=== PATIENT | male | born 1965 | race American Indian/Alaskan Native ===

== ENCOUNTER 2016-06-29 10:37 | Outpatient (CLI) | payer MEDICARE ==
--- NOTE | 2016-06-30 10:07 | PET Report ---
PET/CT:06/29/16 CLINICAL: Hodgkin's lymphoma restaging. RADIOPHARMACEUTICAL: 13.66mCi F18-FDG. COMPARISON: 09/03/14 PET/CT TECHNIQUE- Following intravenous injection of F-18 FDG and an approximately 60 minute uptake period, CT and PET images from the mid skull to the upper thighs were acquired with the patient in the fasted state. No contrast was administered. The CT protocol used for this PET CT study is designed for attenuation correction and anatomic localization of PET abnormalities. This grade recorder CT is not desired to produce and cannot replace, xeibn-xo-ekl-art diagnostic CT scans with specific imaging protocols for different body parts and indications. Plasma glucose at the time of this test: 88g/dl. The standardized uptake values (SUV) are normalized to patient body weight and indicate the highest activity concentration (SUV max) in a given disease site. FINDINGS: Brain--Physiologic FDG uptake in the visualized regions of the brain. Neck--Physiologic FDG uptake . Stable small calcified left supraclavicular lymph nodes. Chest--Physiologic FDG uptake in mediastinal blood pool and myocardium. Lungs--No abnormal uptake. No pulmonary nodule or mass. Stable post radiation changes. Pleura/pericardium--No abnormal uptake. Thoracic nodes--No abnormal uptake. Stable calcified mediastinal lymph nodes. Hepatobiliary--No abnormal uptake. Liver background SUV mean, as a reference for comparing FDG studies, is 3.7 compared to 2.9 on the last exam. No liver mass. Spleen--No abnormal uptake. The spleen is small. Pancreas--No abnormal uptake. Adrenal Glands--No abnormal uptake. Kidneys/Ureters/Bladder--No abnormal uptake. Abdominopelvic Nodes--No abnormal uptake. Bowel/Peritoneum/Mesentery--No abnormal uptake. Pelvic organs--No abnormal uptake. Bones/Soft Tissues--No abnormal uptake. Stable sclerotic lesions of the thoracic and lumbar spine with stable compression fractures of T9 and L1. IMPRESSION- Stable disease.
== END 2016-06-29 10:38 | disposition home or self-care (01) ==
LOC: PET 10:37
PROVIDERS: ATTEND Internal Medicine Hematology
DX: C11.8 Malignant neoplasm of overlapping sites of nasopharynx (principal); S32.019A Unspecified fracture of first lumbar vertebra, initial encounter for closed fracture; X58.XXXA Exposure to other specified factors, initial encounter; Y93.89 Activity, other specified; Y92.89 Other specified places as the place of occurrence of the external cause; Y99.8 Other external cause status
CPT/HCPCS: 78815; 82962; A9552

== ENCOUNTER 2017-01-04 09:58 | Outpatient (CLI) | payer MEDICARE ==
--- NOTE | 2017-01-05 13:41 | PET Report ---
PET/CT:01/04/17 09:58:00 CLINICAL: Hodgkin's lymphoma restaging. RADIOPHARMACEUTICAL: 14.957mCi F18-FDG. COMPARISON: 06/29/16 PET/CT TECHNIQUE- Following intravenous injection of F-18 FDG and an approximately 60 minute uptake period, CT and PET images from the mid skull to the upper thighs were acquired with the patient in the fasted state. No contrast was administered. The CT protocol used for this PET CT study is designed for attenuation correction and anatomic localization of PET abnormalities. This case liner CT is not desired to produce and cannot replace, pwwqs-iz-qpr-art diagnostic CT scans with specific imaging protocols for different body parts and indications. Plasma glucose at the time of this test: 97g/dl. The standardized uptake values (SUV) are normalized to patient body weight and indicate the highest activity concentration (SUV max) in a given disease site. FINDINGS: Brain--Physiologic FDG uptake in the visualized regions of the brain. Neck--Physiologic FDG uptake . Chest--Physiologic FDG uptake in mediastinal blood pool and myocardium. Lungs--No abnormal uptake. No pulmonary nodule or mass. Pleura/pericardium--No abnormal uptake. Thoracic nodes--No abnormal uptake. A few calcified left hilar and mediastinal lymph nodes. Hepatobiliary--No abnormal uptake. Liver background SUV mean, as a reference for comparing FDG studies, is 3.7 compared to 3.7 on the last exam. No liver mass. Spleen--No abnormal uptake. The spleen is small. Pancreas--No abnormal uptake. Adrenal Glands--No abnormal uptake. Kidneys/Ureters/Bladder--No abnormal uptake. Abdominopelvic Nodes--No abnormal uptake. An FDG avid 1.0 x 1.0 cm right internal iliac lymph node with SUV 5.2. An FDG avid right inguinal lymph node measures 1.7 x 1.0 cm with SUV 6.2. An FDG avid 1.2 x 0.9 cm left inguinal lymph node with SUV 8.2. Bowel/Peritoneum/Mesentery--No abnormal uptake. Pelvic organs--No abnormal uptake. Bones/Soft Tissues--No abnormal uptake. Stable thoracic and lumbar spine sclerotic lesions and compression fractures of T9 and L1. IMPRESSION- 1. New disease involving right internal iliac and bilateral inguinal lymph nodes. 2. No other new findings.
== END 2017-01-04 09:59 | disposition home or self-care (01) ==
LOC: PET 09:58
PROVIDERS: ATTEND Internal Medicine Hematology
DX: C81.18 Nodular sclerosis Hodgkin lymphoma, lymph nodes of multiple sites (principal); M48.54XA Collapsed vertebra, not elsewhere classified, thoracic region, initial encounter for fracture; M48.56XA Collapsed vertebra, not elsewhere classified, lumbar region, initial encounter for fracture; M48.8X4 Other specified spondylopathies, thoracic region; M48.8X6 Other specified spondylopathies, lumbar region
CPT/HCPCS: 78815; 82962; A9552

== ENCOUNTER 2017-07-26 09:43 | Outpatient (CLI) | payer MEDICARE ==
--- NOTE | 2017-07-27 11:00 | PET Report ---
PET/CT:07/26/17 09:43:00 CLINICAL: Hodgkin's lymphoma restaging. RADIOPHARMACEUTICAL: 15.11mCi F18-FDG. COMPARISON: 01/04/17 PET/CT TECHNIQUE- Following intravenous injection of F-18 FDG and an approximately 60 minute uptake period, CT and PET images from the mid skull to the upper thighs were acquired with the patient in the fasted state. No contrast was administered. The CT protocol used for this PET CT study is designed for attenuation correction and anatomic localization of PET abnormalities. This installer apprentice CT is not desired to produce and cannot replace, qmyzr-hl-vgb-art diagnostic CT scans with specific imaging protocols for different body parts and indications. Plasma glucose at the time of this test: 101g/dl. The standardized uptake values (SUV) are normalized to patient body weight and indicate the highest activity concentration (SUV max) in a given disease site. FINDINGS: Brain--Physiologic FDG uptake in the visualized regions of the brain. Neck--Physiologic FDG uptake . Chest--Physiologic FDG uptake in mediastinal blood pool and myocardium. Lungs--No abnormal uptake. No pulmonary nodule or mass. Stable left upper lobe and left lower lobe scar. Pleura/pericardium--No abnormal uptake. Thoracic nodes--No abnormal uptake. Stable calcified anterior mediastinal lymph nodes and left hilar lymph nodes. Hepatobiliary--No abnormal uptake. Liver background SUV mean, as a reference for comparing FDG studies, is 2.75 compared to 3.7 on the last exam. No liver mass. Spleen--Small with no abnormal uptake. Pancreas--No abnormal uptake. Adrenal Glands--No abnormal uptake. Kidneys/Ureters/Bladder--No abnormal uptake. Abdominopelvic Nodes--Previously identified FDG avid pelvic lymphadenopathy has resolved. However, a new FDG avid left external iliac lymph node measures 1.7 x 1.4 cm with SUV 6.3. The previously described left inguinal lymph node now measures 1.2 x 1.1 cm with SUV 2.3 compared to 8.2 on the last exam. Bowel/Peritoneum/Mesentery--No abnormal uptake. Pelvic organs--No abnormal uptake. Bones/Soft Tissues--No abnormal uptake. IMPRESSION- Mixed response to treatment with resolution of previously identified FDG avid pelvic lymph nodes but a new enlarged FDG avid left external iliac lymph node. No other new disease.
== END 2017-07-26 09:44 | disposition home or self-care (01) ==
LOC: PET 09:43
PROVIDERS: ATTEND Internal Medicine Hematology
DX: C81.18 Nodular sclerosis Hodgkin lymphoma, lymph nodes of multiple sites (principal); J98.4 Other disorders of lung; R79.89 Other specified abnormal findings of blood chemistry
CPT/HCPCS: 78815; 82962; A9552

== ENCOUNTER 2017-11-04 12:15 | Emergency (ER) | payer MEDICARE ==
[2017-11-04 12:24] VITALS: BP 154/64
[2017-11-04 13:12] LABS: Hematocrit 45.4 % (35.5-45.6); Mean Corpuscular HGB Conc 33 % (32-34); Mean Corpuscular Hemoglobin 30 pg (28-32); Mean Corpuscular Volume 92 fl (84-94); Platelet Count 266 K/mm3 (140-440); Red Blood Count 4.95 M/mm3 (3.65-5.03); Red Cell Distribution Width 15.6 % (13.2-15.2)
[2017-11-04 13:13] LABS: Basophils # (Auto) 0.1 K/mm3 (0.0-0.1); Basophils % (Auto) 0.9 % (0.0-1.8); Eosinophils # (Auto) 0.3 K/mm3 (0.0-0.4); Eosinophils % (Auto) 3.7 % (0.0-4.3); Lymphocytes # (Auto) 2.4 K/mm3 (1.2-5.4); Lymphocytes % (Auto) 31.3 % (13.4-35.0); Mean Platelet Volume 7.2 fl (6-12); Monocytes # (Auto) 0.7 K/mm3 (0.0-0.8); Monocytes % (Auto) 9.7 % (0.0-7.3)
[2017-11-04 13:31] LABS: Alanine Aminotransferase 16 units/L (7-56); Albumin 4.5 g/dL (3.9-5); BUN/Creatinine Ratio 13; Blood Urea Nitrogen 12 mg/dL (9-20); Calcium 10.2 mg/dL (8.4-10.2); Hemolysis Index 24
--- NOTE | 2017-11-04 18:05 | Emergency Department Report ---
ED General Adult HPI - General Chief complaint: Pain General Stated complaint: SHOULDER/HIP/BACK PAIN Time Seen by Provider: 11/04/17 17:38 Source: patient Mode of arrival: Ambulatory Limitations: No Limitations - History of Present Illness Initial comments: Mr. Lou is a 52-year-old male with history of Hodgkin's lymphoma. He was diagnosed in 2008. His followed by oncologist Dr. Domonique Haddad. He receives chemotherapy treatments every 2 weeks. Unfortunately he's had a lapse in his medical insurance coverage. He is covered by Medicaid and Medicare. He contacted Esther case packer and sealer in oncology clinic who referred him to the office for Medicare or Medicaid. He was unable to fill prescriptions of oxycodone and Percocet. He has taken these medications for several years. He has diffuse pain in his joints and back. Pain is not new. Pain is typical and caused by his malignancy. - Related Data Previous Rx's Medication Instructions Recorded Last Taken Type Oxycodone HCl 10 mg PO BID PRN #30 tablet 11/04/17 Unknown Rx Oxycodone HCl/Acetaminophen 1 each PO Q6HR PRN #30 tablet 11/04/17 Unknown Rx [Percocet 10/325 mg] Allergies Allergy/AdvReac Type Severity Reaction Status Date / Time ondansetron HCl AdvReac DECREASE Unverified 11/04/17 12:24 [From Zofran (as HEART RATE hydrochloride)] ED Review of Systems ROS: Stated complaint: SHOULDER/HIP/BACK PAIN Other details as noted in HPI Comment: All other systems reviewed and negative Constitutional: denies: fever, malaise Respiratory: denies: orthopnea Cardiovascular: denies: chest pain ED Past Medical Hx - Past Medical History Previous Medical History?: Yes Hx of Cancer: Yes (Lymphoma) Additional medical history: Chemo. radiation - Surgical History Past Surgical History?: No - Social History Smoking Status: Current Every Day Smoker Substance Use Type: None - Medications Home Medications: Home Medications Medication Instructions Recorded Confirmed Last Taken Type Oxycodone HCl 10 mg PO BID PRN #30 tablet 11/04/17 Unknown Rx Oxycodone HCl/Acetaminophen 1 each PO Q6HR PRN #30 tablet 11/04/17 Unknown Rx [Percocet 10/325 mg] ED Physical Exam - General Limitations: No Limitations General appearance: alert, in no apparent distress - Head Head exam: Present: atraumatic, normocephalic - Eye Eye exam: Present: normal appearance - ENT ENT exam: Present: mucous membranes moist - Neck Neck exam: Present: normal inspection - Respiratory Respiratory exam: Present: normal lung sounds bilaterally. Absent: respiratory distress, wheezes, rales, rhonchi - Cardiovascular Cardiovascular Exam: Present: regular rate, normal rhythm, normal heart sounds. Absent: systolic murmur, diastolic murmur, rubs, gallop - GI/Abdominal GI/Abdominal exam: Present: soft, normal bowel sounds. Absent: distended, tenderness, guarding, rebound - Rectal Rectal exam: Present: deferred - Extremities Exam Extremities exam: Present: normal inspection - Back Exam Back exam: Present: normal inspection - Neurological Exam Neurological exam: Present: alert, oriented X3 - Psychiatric Psychiatric exam: Present: normal affect, normal mood - Skin Skin exam: Present: warm, dry, intact, normal color. Absent: rash ED Course Vital Signs 11/04/17 12:18 Temperature 98.1 F Pulse Rate 91 H Respiratory 16 Rate Blood Pressure 154/64 O2 Sat by Pulse 100 Oximetry ED Medical Decision Making - Lab Data Result diagrams: 11/04/17 12:44 11/04/17 12:44 Laboratory Results - last 24 hr 11/04/17 11/04/17 12:44 12:44 WBC 7.6 RBC 4.95 Hgb 15.0 Hct 45.4 MCV 92 MCH 30 MCHC 33 RDW 15.6 H Plt Count 266 Lymph % (Auto) 31.3 [place] % (Auto) 9.7 H Eos % (Auto) 3.7 Baso % (Auto) 0.9 Lymph # 2.4 [place] # 0.7 Eos # 0.3 Baso # 0.1 Seg Neutrophils % 54.4 Seg Neutrophils # 4.1 Sodium 137 Potassium 4.9 Chloride 97.5 L Carbon Dioxide 27 Anion Gap 17 BUN 12 Creatinine 0.9 Estimated GFR > 60 BUN/Creatinine Ratio 13 Glucose 96 Calcium 10.2 Total Bilirubin 0.30 AST 22 ALT 16 Alkaline Phosphatase 66 Total Creatine Kinase 288 H Troponin T < 0.010 NT-Pro-B Natriuret Pep 54.81 Total Protein 7.6 Albumin 4.5 Albumin/Globulin Ratio 1.5 - Medical Decision Making Mr. Lou unfortunately was unable to obtain his prescriptions of Percocet and oxycodone. I was able to assess his prescription medication history from the [place] drug prescription drug monitoring program. I did see that he has received all his narcotic medications from Dr. Domonique Haddad. I have prescribed 30 tablets of Percocet 10 mg tablets. Also prescribed 30 tablets of oxycodone 10 mg tablets. Critical care attestation.: If time is entered above; I have spent that time in minutes in the direct care of this critically ill patient, excluding procedure time. ED Disposition Clinical Impression: Whole body pain, Hodgkins lymphoma Disposition: TO HOME OR SELFCARE Is pt being admited?: No Does the pt Need Aspirin: No Condition: Stable Instructions: Hodgkin Disease (ED) Additional Instructions: Please contact Dr. Haddad's office tomorrow for assistance. Prescriptions: Oxycodone HCl 10 mg PO BID PRN #30 tablet PRN Reason: Pain Oxycodone HCl/Acetaminophen [Percocet 10/325 mg] 1 each PO Q6HR PRN #30 tablet PRN Reason: Pain Referrals: DOMONIQUE HADDAD MD [Primary Care Provider] - 3-5 Days Time of Disposition: 18:08
== END 2017-11-04 18:42 | disposition home or self-care (01) ==
LOC: ED 12:15
DX: C81.90 Hodgkin lymphoma, unspecified, unspecified site (principal); F17.200 Nicotine dependence, unspecified, uncomplicated; Z79.899 Other long term (current) drug therapy; Z88.8 Allergy status to other drugs, medicaments and biological substances
CPT/HCPCS: 36415; 80053; 82550; 83880; 84484; 85025; 99283

== ENCOUNTER 2018-07-04 12:11 | Outpatient (CLI) | payer MEDICARE ==
--- NOTE | 2018-07-05 16:25 | PET Report ---
PET/CT:07/04/18 12:11:00 CLINICAL: Hodgkin's lymphoma restaging RADIOPHARMACEUTICAL: 12.475mCi F18-FDG. COMPARISON: 07/26/17 PET/CT TECHNIQUE- Following intravenous injection of F-18 FDG and an approximately 60 minute uptake period, CT and PET images from the mid skull to the upper thighs were acquired with the patient in the fasted state. No contrast was administered. The CT protocol used for this PET CT study is designed for attenuation correction and anatomic localization of PET abnormalities. This runstitching machine operator CT is not desired to produce and cannot replace, hdfdl-ly-qph-art diagnostic CT scans with specific imaging protocols for different body parts and indications. Plasma glucose at the time of this test: 91g/dl. The standardized uptake values (SUV) are normalized to patient body weight and indicate the highest activity concentration (SUV max) in a given disease site. FINDINGS: Brain--Physiologic FDG uptake in the visualized regions of the brain. Neck--Physiologic FDG uptake in mucosal structures. No mass or lymphadenopathy. Bilateral palatine tonsillar FDG uptake within SUV 5.8 on the right and 4.9 on the left. Right retropharyngeal focal FDG uptake within SUV 3.9 at the level of the cricoid cartilage. Chest--Physiologic FDG uptake in mediastinal blood pool and myocardium. Lungs--No abnormal uptake. No pulmonary nodule or mass. Stable left upper lobe and left lower lobe scar. Pleura/pericardium--No abnormal uptake. Thoracic nodes--No abnormal uptake. Hepatobiliary--No abnormal uptake. Liver background SUV mean, as a reference for comparing FDG studies, is 2.7 compared to 2.5 on the last exam. No liver mass. Spleen--No abnormal uptake. The spleen is small. Pancreas--No abnormal uptake. Adrenal Glands--No abnormal uptake. Kidneys/Ureters/Bladder--No abnormal uptake. Abdominopelvic Nodes--Bilateral FDG avid inguinal lymphadenopathy. The largest lymph node on the right measures 1.9 x 1.8 cm with SUV 5.1. A 1.2 x 1.2 cm left inguinal lymph node with SUV 2.7 compared to 1.2 x 1.1 cm and SUV 2.3. The previously described left external iliac lymph node measures 2.0 x 1.3 cm with SUV 6.9 compared to 1.7 x 1.4 cm in SUV 6.3 on the last exam. No retroperitoneal lymphadenopathy. Bowel/Peritoneum/Mesentery--No abnormal uptake. Pelvic organs--No abnormal uptake. Bones/Soft Tissues--No abnormal uptake and no suspicious bone lesions. IMPRESSION- Progression of disease with increased bilateral inguinal lymphadenopathy and increased size and FDG uptake in a left external iliac lymph node. FDG uptake in the neck is probably benign.
== END 2018-07-04 12:12 | disposition home or self-care (01) ==
LOC: PET 12:11
PROVIDERS: ATTEND Internal Medicine Hematology
DX: R59.1 Generalized enlarged lymph nodes (principal); C81.18 Nodular sclerosis Hodgkin lymphoma, lymph nodes of multiple sites; F17.210 Nicotine dependence, cigarettes, uncomplicated; Z88.8 Allergy status to other drugs, medicaments and biological substances
CPT/HCPCS: 78815; 82962; A9552

== ENCOUNTER 2019-01-16 08:38 | Outpatient (CLI) | payer MEDICARE ==
--- NOTE | 2019-01-16 12:41 | PET Report ---
POSITRON EMISSION TOMOGRAPHY WITH CT FOR ATTENUATION CORRECTION AND ANATOMIC CORRELATION ONLY Indication: Restaging Hodgkin's lymphoma Comparison: 07/04/2018 Technique: Study was performed from skull base to mid thigh using 14.07 millicuries of F18-FDG inject ed at 0912 hours with scan initiation time of 1033 hours. Just prior to injection, serum glucose [facility] was measured at 108 mg/dl. Low-resolution CT without contrast was performed. All CT scans at this ocation are performed using CT dose reduction for ALARA by means of automated exposure control. CT findings: Small nodule in the right lower lobe is stable. Scarring is again noted in the upper lob es bilaterally without change. Small nodes are again seen in the junction of the neck and chest exten ding into the superior mediastinum with partial calcification without change. Calcified anterior medi astinal and left hilar nodes are seen again. No retroperitoneal lymphadenopathy is seen. Spleen are n ot enlarged. Mild colonic diverticulosis is seen without evidence of diverticulitis. Enlarged right i nguinal nodes are again noted. Largest node in this area measures 2.7 cm and length with a short axis length of 2.2 cm. Prior study this node measured 2.1 cm in length with a short axis diameter of 1.8 cm. In the left inguinal area only small nodes are seen without change with the largest having a shor t axis diameter of 1 cm.. Nodes in the left external iliac area appear mildly decreased in prominence . There appears to be mild new adenopathy in the right lateral pelvis posterior to the external iliac vasculature with increased density in this area now measuring 2.3 cm in length and 1.4 cm in thickne ss. This area may include some vasculature however. PET findings: No significant increased metabolic foci are seen in the neck, chest, or abdomen. The en larged nodes in the right inguinal area continue to show increased metabolic activity. This measures up to a maximum of 10.0 and the largest node. This compares to 7.1 maximum SUV previously. In the lef t inguinal area only faint activity is seen in the largest node with maximal SUV of only 1.5. The lef t external iliac adenopathy today shows only mild activity with maximal SUV of 2.8 compared to 7.9 pr eviously. The area of increased density in the lateral right pelvis shows maximal SUV of 4.6. IMPRESSION: The right inguinal adenopathy is more prominent now with more prominent metabolic activit y. Improvement is seen in the left external iliac area however. A new area of mild adenopathy is seen in the right lateral pelvis as above increased metabolic activity. Signer Name: Toño Garibay MD Signed: 01/16/2019 12:37 PM Workstation Name: [id number]
== END 2019-01-16 08:39 | disposition home or self-care (01) ==
LOC: PET 08:38
PROVIDERS: ATTEND Internal Medicine Hematology
DX: C81.18 Nodular sclerosis Hodgkin lymphoma, lymph nodes of multiple sites (principal); K57.30 Diverticulosis of large intestine without perforation or abscess without bleeding; R73.09 Other abnormal glucose
CPT/HCPCS: 78815; 82962; A9552

== ENCOUNTER 2019-03-27 08:27 | Outpatient (CLI) | payer MEDICARE ==
--- NOTE | 2019-03-27 14:20 | PET Report ---
PET/CT HISTORY: C81.18. Restaging of nodular Hodgkin's lymphoma TECHNIQUE: The patient's fasting blood glucose was 104. The patient weighed 157 lbs. The patient w as injected with 11.5 mCi of FDG in the left hand at 0924 hours and imaging was started at 1009 hours . The patient was imaged from the skull base to the thighs. All CT scans at this location are perfor med using CT dose reduction for ALARA by means of automated exposure control. COMPARISON: 01/16/2019 FINDINGS: IMAGED BRAIN: Physiologic FDG uptake. NECK: Physiologic FDG uptake. MEDIASTINUM: Physiologic FDG uptake. Calcified lymph nodes in the paratracheal, AP window and left hi lar chain are stable. No new or suspicious adenopathy. LUNGS: Physiologic FDG uptake. Tiny subpleural nodule in the right lower lobe is stable. No suspiciou s lung nodule or mass has developed. Stable radiation changes to the mediastinum. HEPATOBILIARY: Physiologic FDG uptake. Mean liver SUV measures 5.6. PANCREAS: Physiologic FDG uptake. SPLEEN: Physiologic FDG uptake. The spleen is homogeneous and measures 8 cm in length. KIDNEYS AND RENAL COLLECTING SYSTEMS: Physiologic FDG uptake. ADRENAL GLANDS: Physiologic FDG uptake: MESENTERY/BOWEL: Physiologic FDG uptake. LYMPH NODES: Mildly enlarged right inguinal lymph nodes appear stable in size and number. The largest lymph node measures 2.5 cm in long axis and demonstrates a max SUV of 8.1 as opposed to 10.0 on the previous exam. Left inguinal lymph nodes remain normal size and hypometabolic. Borderline right exter nal iliac lymph nodes are stable in size with max SUV of 5.8 which is increased from 4.6. No new area s of carmine uptake are appreciated. OSSEOUS STRUCTURES: Physiologic FDG uptake. Mottled appearance of T10, L1, L5 and portions of the lef t hemipelvis are identified and unchanged. These areas are hypometabolic. It is unclear if this repre sents metastatic disease or possibly Paget's disease. Compression deformity at T10 is stable. IMPRESSION: Overall positive response to therapy is suggested since the previous exam. Right inguinal lymph nodes are stable in size and number and demonstrate slight decrease in metabolic activity. Sma ll right external iliac lymph nodes are stable in size with minimal increase in metabolic activity. N o new areas of disease are identified. Questionable bony lesions as described above which are hypomet abolic. Signer Name: Richi Castro Jr, MD Signed: 03/27/2019 2:16 PM Workstation Name: [id number]
== END 2019-03-27 08:28 | disposition home or self-care (01) ==
LOC: PET 08:27
PROVIDERS: ATTEND Internal Medicine Hematology
DX: C81.18 Nodular sclerosis Hodgkin lymphoma, lymph nodes of multiple sites (principal); Z79.899 Other long term (current) drug therapy
CPT/HCPCS: 78815; 82962; A9552

== ENCOUNTER 2019-06-14 13:01 | Emergency (ER) | payer MEDICARE ==
[2019-06-14 13:13] VITALS: BP 152/88
[2019-06-14] MEDS ORDERED: SODIUM CHLORIDE 0.9% 1000 ML 1,000 ML IV ONE (13:29)
--- NOTE | 2019-06-14 13:30 | Event Note ---
ED Screening Note Date of service: 06/14/19 Time: 13:26 ED Screening Note: 53 y o male with pmh of non hodgkins lymphoma currently on immunotheraphy cc od dental pain off and on x 2 weeks worsening with swelling today states he feels fatigue, weak and dehydrtaed This initial assessment/diagnostic orders/clinical plan/treatment(s) is/are subject to change based on patients health status, clinical progression and re- assessment by fellow clinical providers in the ED. Further treatment and workup at subsequent clinical providers discretion. Patient/guardian urged not to elope from the ED as their condition may be serious if not clinically assessed and managed. Initial orders include: labs, IVF pain control
[2019-06-14 14:43] LABS: Basophils % (Auto) 0.4 % (0.0-1.8); Hematocrit 43.7 % (35.5-45.6); Hemoglobin 14.6 gm/dl (11.8-15.2); Lymphocytes # (Auto) 1.6 K/mm3 (1.2-5.4); Lymphocytes % (Auto) 17.8 % (13.4-35.0); Mean Corpuscular HGB Conc 33 % (32-34); Mean Corpuscular Volume 90 fl (84-94); Monocytes # (Auto) 0.8 K/mm3 (0.0-0.8); Monocytes % (Auto) 8.6 % (0.0-7.3); Platelet Count 292 K/mm3 (140-440); Red Blood Count 4.85 M/mm3 (3.65-5.03); Red Cell Distribution Width 14.3 % (13.2-15.2)
[2019-06-14 14:59] LABS: Alanine Aminotransferase 13 units/L (7-56); Albumin 4.2 g/dL (3.9-5); BUN/Creatinine Ratio 12; Blood Urea Nitrogen 11 mg/dL (9-20); Hemolysis Index 14
[2019-06-14] MEDS ORDERED: CLINDAMYCIN 600 MG/50 mL 600 MG/50 ML BAG IV ONE (15:16)
[2019-06-14] MEDS ORDERED: KETOROLAC 30 MG/1 ML INJ IV ONE (15:18)
--- NOTE | 2019-06-14 16:39 | Cat Scan Report ---
CT facial bones w con INDICATION / CLINICAL INFORMATION: 53 years Male; left jaw swelling, dental infection. TECHNIQUE: Cut axial images obtained to the facial bones following contrast. Sagittal and coronal reconstruction s performed. All CT scans at this location are performed using CT dose reduction for ALARA by means o f automated exposure control. COMPARISON: None available. FINDINGS: There is a very small subperiosteal abscess seen adjacent to the root of the second premolar along th e buccal surface of the mandibular alveolar ridge on the left. Significant, surrounding inflammatory change/cellulitis noted. There is mild mucosal thickening in the ethmoids. Mucous retention cyst seen in the right maxillary a ntrum. Orbits and surrounding soft tissues are otherwise grossly normal. IMPRESSION: 1. Small subperiosteal abscess seen along the mandibular alveolar ridge on the left, as described abo ve. Signer Name: Ishan Pierson MD, III Signed: 06/14/2019 4:35 PM Workstation Name: [id number]
--- NOTE | 2019-06-14 17:34 | Emergency Department Report ---
ED ENT HPI - General Chief complaint: Dental/Oral Stated complaint: LEFT JAW PAIN Time Seen by Provider: 06/14/19 15:05 Source: patient Mode of arrival: Ambulatory Limitations: No Limitations - History of Present Illness Initial comments: 53-year-old male with a past medical history of non-Hodgkin's lymphoma currently receiving immunotherapy once a month presents to the hospital complains of pain and swelling to left side of jaw. Patient has had a toothache to the area for the past week. Last night pain worsened with swelling. Upon arrival patient states swelling is more likely lies and less painful. He is chronically on narcotics for cancer related pain. Patient receives Nivolumab once a month for his cancer last session was 2 days ago. Patient denies fever, shortness of breath, or difficulty swallowing. - Related Data Previous Rx's Medication Instructions Recorded Last Taken Type Oxycodone HCl [Oxycodone HCl 10mg 10 mg PO BID PRN #30 tablet 11/04/17 Unknown Rx tab] Oxycodone HCl/Acetaminophen 1 each PO Q6HR PRN #30 tablet 11/04/17 Unknown Rx [Percocet 10/325 mg] Clindamycin [Clindamycin CAP] 450 mg PO Q8HR #21 capsule 06/14/19 Unknown Rx Allergies Allergy/AdvReac Type Severity Reaction Status Date / Time ondansetron HCl AdvReac DECREASE Unverified 11/04/17 12:24 [From Zofran (as HEART RATE hydrochloride)] ED Dental HPI - General Chief complaint: Dental/Oral Stated complaint: LEFT JAW PAIN Time Seen by Provider: 06/14/19 15:05 Source: patient Mode of arrival: Ambulatory Limitations: No Limitations - Related Data Previous Rx's Medication Instructions Recorded Last Taken Type Oxycodone HCl [Oxycodone HCl 10mg 10 mg PO BID PRN #30 tablet 11/04/17 Unknown Rx tab] Oxycodone HCl/Acetaminophen 1 each PO Q6HR PRN #30 tablet 11/04/17 Unknown Rx [Percocet 10/325 mg] Clindamycin [Clindamycin CAP] 450 mg PO Q8HR #21 capsule 06/14/19 Unknown Rx Allergies Allergy/AdvReac Type Severity Reaction Status Date / Time ondansetron HCl AdvReac DECREASE Unverified 11/04/17 12:24 [From Zofran (as HEART RATE hydrochloride)] ED Review of Systems ROS: Stated complaint: LEFT JAW PAIN Other details as noted in HPI Comment: All other systems reviewed and negative ED Past Medical Hx - Past Medical History Previous Medical History?: Yes Hx of Cancer: Yes (non Hodgkins lymphoma) Additional medical history: Chemo. radiation - Surgical History Past Surgical History?: No - Social History Smoking Status: Current Every Day Smoker Substance Use Type: Alcohol - Medications Home Medications: Home Medications Medication Instructions Recorded Confirmed Last Taken Type Oxycodone HCl [Oxycodone HCl 10mg 10 mg PO BID PRN #30 tablet 11/04/17 Unknown Rx tab] Oxycodone HCl/Acetaminophen 1 each PO Q6HR PRN #30 tablet 11/04/17 Unknown Rx [Percocet 10/325 mg] Clindamycin [Clindamycin CAP] 450 mg PO Q8HR #21 capsule 06/14/19 Unknown Rx ED Physical Exam - General Limitations: No Limitations - Other Other exam information: General: No acute distress Head: Atraumatic Eyes: normal appearance ENT: Moist mucous membranes tooth 21 and 22 with dental carries, gum swelling in this area that is firm to palpation, let sided jaw swelling without skin redness. floor of mouth soft, no post pharyngeal edema or stridor Neck: Normal appearance, no midline tenderness Chest: Clear to auscultation bilaterally CV: Regular rate and rhythm Abdomen: Soft, normal bowel sounds, nontender, nondistended, no rebound or guarding Back: Normal inspection Extremity: Normal inspection infection, full range of motion Neuro: Alert O x 3, no facial asymmetry, speech clear, no gross motor sensory deficit Psych: Appropriate behavior Skin: No rash ED Course Vital Signs 06/14/19 13:11 Temperature 97.7 F Pulse Rate 97 H Respiratory 18 Rate Blood Pressure 152/88 O2 Sat by Pulse 96 Oximetry ED Medical Decision Making - Lab Data Result diagrams: 06/14/19 13:49 06/14/19 13:49 Lab Results 06/14/19 06/14/19 Range/Units 13:49 13:49 WBC 9.0 (4.5-11.0) K/mm3 RBC 4.85 (3.65-5.03) M/mm3 Hgb 14.6 (11.8-15.2) gm/dl Hct 43.7 (35.5-45.6) % MCV 90 (84-94) fl MCH 30 (28-32) pg MCHC 33 (32-34) % RDW 14.3 (13.2-15.2) % Plt Count 292 (140-440) K/mm3 Lymph % (Auto) 17.8 (13.4-35.0) % [place] % (Auto) 8.6 H (0.0-7.3) % Eos % (Auto) 0.0 (0.0-4.3) % Baso % (Auto) 0.4 (0.0-1.8) % Lymph # 1.6 (1.2-5.4) K/mm3 [place] # 0.8 (0.0-0.8) K/mm3 Eos # 0.0 (0.0-0.4) K/mm3 Baso # 0.0 (0.0-0.1) K/mm3 Seg Neutrophils % 73.2 H (40.0-70.0) % Seg Neutrophils # 6.6 (1.8-7.7) K/mm3 Sodium 136 L (137-145) mmol/L Potassium 4.0 (3.6-5.0) mmol/L Chloride 95.7 L (98-107) mmol/L Carbon Dioxide 21 L (22-30) mmol/L Anion Gap 23 mmol/L BUN 11 (9-20) mg/dL Creatinine 0.9 (0.8-1.5) mg/dL Estimated GFR > 60 ml/min BUN/Creatinine Ratio 12 % Glucose 120 H (75-100) mg/dL Calcium 10.0 (8.4-10.2) mg/dL Total Bilirubin 0.30 (0.1-1.2) mg/dL AST 19 (5-40) units/L ALT 13 (7-56) units/L Alkaline Phosphatase 91 (35-129) units/L Total Protein 7.8 (6.3-8.2) g/dL Albumin 4.2 (3.9-5) g/dL Albumin/Globulin Ratio 1.2 % - Radiology Data Radiology results: report reviewed CT facial bones with IV contrast small sub-periosteal abscess seen along the mandibular alveolar ridge on the left along the mucosal surface. Significant surrounding inflammatory changes cellulitis noted. - Medical Decision Making pt received iv clindamycin + very small dental abscess + cellulitis No signs of abscess, septic shock, or airway compromise Patient will be discharged on antibiotics and follow-up. - Differential Diagnosis dental carries, dental abscess Critical Care Time: No Critical care attestation.: If time is entered above; I have spent that time in minutes in the direct care of this critically ill patient, excluding procedure time. ED Disposition Clinical Impression: Dental abscess, Facial cellulitis, Dental caries Disposition: TO HOME OR SELFCARE Is pt being admited?: No Condition: Stable Instructions: Dental Abscess (ED), Dental Caries (ED) Additional Instructions: Take the medication as prescribed. Follow-up with your doctor or doctor/clinic provided. Return if symptoms worsen as indicated by your discharge instructions. Prescriptions: Clindamycin [Clindamycin CAP] 450 mg PO Q8HR #21 capsule Referrals: [facility] [Outside] - 3-5 Days BRIDGETT MAURER DDS [Staff Physician] - 3-5 Days (oral maxillary facial surgeon) Time of Disposition: 17:42
== END 2019-06-14 17:57 | disposition home or self-care (01) ==
LOC: ED 13:01
DX: K04.7 Periapical abscess without sinus (principal); L03.211 Cellulitis of face; K02.9 Dental caries, unspecified; C81.90 Hodgkin lymphoma, unspecified, unspecified site; F17.200 Nicotine dependence, unspecified, uncomplicated; Z79.899 Other long term (current) drug therapy; Z88.8 Allergy status to other drugs, medicaments and biological substances
CPT/HCPCS: 36415; 70487; 80053; 85025; 96365; 96375; 99284; J1885; J7030; Q9967

== ENCOUNTER 2020-07-01 09:37 | Outpatient (CLI) | payer MEDICARE ==
--- NOTE | 2020-07-06 14:24 | PET Report ---
PET sb to mt subsequent INDICATION / CLINICAL INFORMATION: C81.18. TRACER: F-18 FDG 15.13 mCi IV injection via the right antecubital fossa at 10:09 AM on 07/01/2020. Blood glucos e is 94 mg/dL. TECHNIQUE: Following injection of the above tracer and appropriate delay, PET imaging was performed from the [facility] ll base to the upper thighs. CT imaging was performed the same time for the purposes of anatomic loca lization. All CT scans at this location are performed using CT dose reduction for ALARA by means of a utomated exposure control. COMPARISON: None available. FINDINGS: HEAD/NECK: No abnormal uptake. CHEST: No abnormal uptake. ABDOMEN/PELVIS: Babs uptake posterior to the IVC with maximal SUV of 5.1 (previously 6.2). Size is unchanged. 2 meta bolically active nodes are now present at the right external iliac chain. A solitary metabolically ac tive node is present on the left. A personal service representative node at the right external iliac chain is increase d from 1-1 .4 cm. Maximal SUV is 8.4. Metabolically active node at the left pelvic sidewall measures 1 cm and has maximal SUV of 3.8. UPPER LEGS: No new uptake. INCIDENTAL CT FINDINGS: No new incidental CT finding. IMPRESSION: Worsening metabolically active adenopathy. Signer Name: Sudhir Gorodn MD Signed: 07/06/2020 2:19 PM Workstation Name: [id number]
== END 2020-07-01 09:38 | disposition home or self-care (01) ==
LOC: PET 09:37
PROVIDERS: ATTEND Internal Medicine Hematology & Oncology
DX: C81.18 Nodular sclerosis Hodgkin lymphoma, lymph nodes of multiple sites (principal)
CPT/HCPCS: 78815; 82962; A9552

== ENCOUNTER 2020-11-11 08:25 | Outpatient (CLI) | payer MEDICARE ==
--- NOTE | 2020-11-11 11:31 | PET Report ---
PET/CT HISTORY: C81.18. 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 The patient weighed 167 lbs. The patient w as injected with 11.85 mCi of FDG in the left arm at 0930 hours and imaging was started at 1020 hours . The patient was imaged from the skull base to the thighs. All CT scans at this location are perfor med using CT dose reduction for ALARA by means of automated exposure control. Images were reviewed on a workstation. COMPARISON: PET/CT dated 07/01/2020 FINDINGS: IMAGED BRAIN: Physiologic FDG uptake. NECK: Physiologic FDG uptake. CHEST WALL: Physiologic FDG uptake. MEDIASTINUM: Physiologic FDG uptake. Calcified mediastinal lymph nodes are again seen consistent wit h previously treated disease. LUNGS: Physiologic FDG uptake. Scarring in the medial left upper lobe is stable and likely related t o therapy. No suspicious pulmonary lesion. HEPATOBILIARY: Physiologic FDG uptake. PANCREAS: Physiologic FDG uptake. SPLEEN: Physiologic FDG uptake. KIDNEYS/BLADDER: Physiologic FDG uptake. ADRENAL GLANDS: Physiologic FDG uptake. GI/MESENTERY: Physiologic FDG uptake. PELVIC VISCERA: Physiologic FDG uptake. LYMPH NODES: 2 retrocaval lymph nodes appear stable in size but demonstrate decreased max SUV from 5 .1 to 3.5. A right iliac lymph node has increased in size from 2.1 x 1.4 cm to 2.6 x 2.0 cm but demon strates decreased max SUV from 8.4 to 7.5. The left iliac lymph node has increased in size from 1.3 x 0.9 to 1.6 x 1.2 cm but demonstrates decreased max SUV from 3.8 to 3.3. No new suspicious lymph node s are appreciated.. OSSEOUS STRUCTURES: Physiologic FDG uptake. Stable sclerotic appearance of T10, L1, L5 and left nhan pelvis. ADDITIONAL FINDINGS: None. IMPRESSION: Overall a slight positive response to therapy is suspected since 07/01/2020 exam. Retrocaval lymph nod es remain the same size with decreased metabolic activity as described. Bilateral iliac lymph nodes a ppears slightly increased in size but demonstrates decreased metabolic activity as described. Please see above. No new areas of disease are identified since 07/01/2020 exam. Signer Name: Richi Castro Jr, MD Signed: 11/11/2020 11:26 AM Workstation Name: [id number]
== END 2020-11-11 08:26 | disposition home or self-care (01) ==
LOC: PET 08:25
PROVIDERS: ATTEND Internal Medicine Hematology
DX: C81.18 Nodular sclerosis Hodgkin lymphoma, lymph nodes of multiple sites (principal); R59.0 Localized enlarged lymph nodes
CPT/HCPCS: 78815; 82962; A9552

== ENCOUNTER 2021-03-31 09:37 | Outpatient (CLI) | payer MEDICARE ==
--- NOTE | 2021-03-31 15:16 | PET Report ---
PET sb to mt subsequent INDICATION / CLINICAL INFORMATION: Restaging Hodgkin's lymphoma.. TRACER: F-18 FDG 13.58 mCi IV injection on 03/31/2021. Blood glucose is 89 mg/dL TECHNIQUE: Following injection of the above tracer and appropriate delay, [facility] to [facility] upper thighs. CT imaging was performed same time for the purposes of anatomic localiza tion. All CT examinations at this institution utilize dose reduction: Automated exposure control. COMPARISON: 11/11/2020 FINDINGS: HEAD/NECK: No abnormal uptake. CHEST: No abnormal uptake. ABDOMEN/PELVIS: Splenic uptake with maximal SUV of 8.8. Low-grade uptake of 4 was present previously which is slightl y greater than background. Persistent uptake at a retrocaval node with maximal SUV of 4.7 (previously 3.5). Right iliac node with maximal SUV of 9.6 (previously 7.5). Size is increased from 2.6 x 2 cm-2 .9 x 2.1 cm. A left iliac node has maximal SUV of 3.5 (previously 3.3). UPPER LEGS: No abnormal uptake. INCIDENTAL CT FINDINGS: No new significant incidental finding. IMPRESSION: 1. Significant increasing splenic uptake. 2. Persistent carmine uptake with mild worsening. Signer Name: Sudhir Gordon MD Signed: 03/31/2021 3:12 PM Workstation Name: [id number]
== END 2021-03-31 09:38 | disposition home or self-care (01) ==
LOC: PET 09:37
PROVIDERS: ATTEND Internal Medicine Hematology
DX: C81.18 Nodular sclerosis Hodgkin lymphoma, lymph nodes of multiple sites (principal); C79.51 Secondary malignant neoplasm of bone; T45.1X5A Adverse effect of antineoplastic and immunosuppressive drugs, initial encounter; E86.9 Volume depletion, unspecified; D51.8 Other vitamin B12 deficiency anemias; R53.83 Other fatigue; E86.0 Dehydration; J30.2 Other seasonal allergic rhinitis; G47.00 Insomnia, unspecified; G89.29 Other chronic pain; R05.9 Cough, unspecified
CPT/HCPCS: 78815; 82962; A9552

== ENCOUNTER 2021-09-08 08:15 | Outpatient (CLI) | payer MEDICARE ==
--- NOTE | 2021-09-08 11:56 | PET Report ---
PET-CT SCAN INDICATION / CLINICAL INFORMATION: C79.51. STAGING: Re-staging TECHNIQUE: Tumor imaging, positron emission tomography (PET) with concurrently acquired computed suzie graphy (CT) for attenuation correction and anatomical localization; Skull Base to Mid Thigh - DOSE: 14.49 mCi F-18 FDG was administered IV per protocol - GLUCOSE: Patient's blood glucose at that time was (mg/dL): 106 - UPTAKE TIME: PET scan performed approximately 60 minutes after radiotracer administration. - CT SCAN DESCRIPTION: No oral or IV contrast. All CT scans at this location are performed using CT d ose reduction for ALARA by means of automated exposure control. COMPARISON: 03/31/2021 FINDINGS: HEAD / NECK: No abnormal radiotracer uptake in the neck. No significant CT abnormality. CHEST: There is subtle uptake in the right hilum which is not specific. This may be vascular. This me asures 2.5 SUV and was not present previously. No discrete CT abnormality is seen in the right hilum to correspond to the uptake. ABDOMEN / PELVIS: There is pathologic uptake in the spleen. There is focal enlargement of the spleen at the site measures approximately 6 cm in diameter. This measures 12.7 SUV on the current study. Pre viously this measured 8.8 SUV and 4.1 cm. Adenopathy posterior to the inferior vena cava is again noted. CT abnormality appears similar to the prior study. This measures up to 3.5 SUV currently and previously measured 5 SUV. There is a new hype rmetabolic left periaortic node,/162,. This measures 3.8 SUV and 8 mm in short axis. Babs mass along the right pelvic sidewall measures 2.8 x 3.8 cm and 10.3 SUV. Previously this measured 2.1 x 2 cm an d 9.6 SUV. Hypermetabolic adenopathy along the left pelvic sidewall measures 19 x 16 mm and 5.1 SUV. Previously this measured 16 x 13 mm and 3.5 SUV. LOWER EXTREMITIES: No abnormal radiotracer uptake in the visualized lower extremities. No significant CT abnormality. SKELETAL STRUCTURES: No hypermetabolic bone lesions. No significant CT abnormality. ADDITIONAL FINDINGS: No additional significant findings. IMPRESSION: 1. There is overall worsening pattern of disease. Lesion in the spleen is increased in size and metab olic activity. Pelvic adenopathy is increased in size and metabolic activity. There is a new left per iaortic node. There is a questionable hypermetabolic lymph node in the right hilum. 2. Retrocaval adenopathy shows mild decrease in metabolic activity. Signer Name: Homero Napoles MD Signed: 09/08/2021 11:51 AM Workstation Name: [id number]
== END 2021-09-08 08:16 | disposition home or self-care (01) ==
LOC: PET 08:15
PROVIDERS: ATTEND Internal Medicine Hematology & Oncology
DX: C81.18 Nodular sclerosis Hodgkin lymphoma, lymph nodes of multiple sites (principal); C79.51 Secondary malignant neoplasm of bone; R59.0 Localized enlarged lymph nodes
CPT/HCPCS: 78815; 82962; A9552